=== PATIENT | male | born 1975 | race African-American/Black ===

== ENCOUNTER 2021-08-25 01:11 | Emergency (ER) | payer OTHER ==
[~2021-08-25] VITALS: Ht 185.4 cm; Wt 79.4 kg
--- NOTE | 2021-08-25 01:25 | NUR ---
BIBRA 89 FOR C/O SI. REQUESTING VOLUNTARY PSYCH ADMISSION. PATIENT ALERT AND ORIENTED X3. AMBULATORY WITH NON LABORED BREATHING IN ROOM 18 BELONGINGS COLLECTED AND PLACED IN LOCKER. PATIENT PLACED IN GOWN.
--- NOTE | 2021-08-25 01:48 | NUR ---
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
[2021-08-25 02:02] LABS: BASOPHILS % (AUTO) 0.6 % (0.0-2.0); EOSINOPHILS % (AUTO) 2.5 % (0.0-6.0); HEMATOCRIT 39 % (39-51); HEMOGLOBIN 13.1 g/dL (13.5-17.5); LYMPHOCYTES # (AUTO) 1.4 K/uL (0.8-4.8); LYMPHOCYTES % (AUTO) 32.7 % (20.0-44.0); MEAN CORPUSCULAR HGB CONC 34 g/dl (31.0-36.0); MEAN CORPUSCULAR VOLUME 93 fL (80-96); MONOCYTES # (AUTO) 0.5 K/uL (0.1-1.30); MONOCYTES % (AUTO) 10.6 % (2.0-12.0); NEUTROPHILS # (AUTO) 2.4 K/uL (1.8-8.9); NEUTROPHILS % (AUTO) 53.6 % (43.0-81.0); PLATELET COUNT (AUTO) 262 K/uL (150-450); RED BLOOD CELL COUNT(AUTO) 4.19 MIL/uL (4.5-6.0); WHITE BLOOD COUNT (AUTO) 4.4 K/uL (4.3-11.0)
[2021-08-25 02:14] LABS: CALCIUM, SERUM 8.8 mg/dL (8.5-10.1); CARBON DIOXIDE 29 mmol/L (21-32); CHLORIDE 104 mmol/L (98-107); CREATININE 1.2 mg/dL (0.6-1.3); GLUCOSE 73 mg/dL (74-106); POTASSIUM 3.6 mmol/L (3.5-5.1); SODIUM SERUM 139 mmol/L (136-145); UREA NITROGEN, BLOOD 10 mg/dL (7-18)
[2021-08-25 02:27] LABS: ALANINE AMINOTRANSFERASE 21 U/L (12-78); ALCOHOL, BLOOD < 3 mg/dL (0-0); ALKALINE PHOSPHATASE 89 U/L (46-116); ASPARTATE AMINOTRANSFERASE 11 U/L (15-37); BILIRUBIN,DIRECT 0.3 mg/dL (0.0-0.2); BILIRUBIN,TOTAL 1.2 mg/dL (0.2-1.0); TOTAL PROTEIN, SERUM 7.7 g/dL (6.4-8.2)
[2021-08-25 02:28] LABS: ACETAMINOPHEN 0 ug/ml (10-30)
--- NOTE | 2021-08-25 06:55 | NUR ---
PATIENT RESTING COMFORTABLY NO COMPLAINTS AT THIS TIME.
--- NOTE | 2021-08-25 09:08 | NUR ---
Plan: DAMION faxed clinicals to [facility] [[facility] [place] [address] FAX:[phone]] for inpatient psychiatric treatment.
[2021-08-25 09:11] LABS: BILIRUBIN,URINE SMALL (NEGATIVE); COLOR,URINE YELLOW (YELLOW); LEUKOCYTE ESTERASE ,URINE NEGATIVE (NEGATIVE); NITRITE, URINE NEGATIVE (NEGATIVE); PROTEIN,URINE TRACE mg/dl (NEGATIVE); UGLUCOSE NEGATIVE (NEGATIVE)
[2021-08-25 09:42] LABS: BACTERIA,URINE None seen /HPF (None Seen)
[2021-08-25 09:43] LABS: MUCUS,URINE Few /LPF (None Seen); SQUAMOUS EPITHELIAL CELL,UR Few /HPF (None Seen)
--- NOTE | 2021-08-25 11:26 | NUR ---
DAMION called [facility] Intake and requested update. Intake asked SW to refax clinicals to [phone]. DAMION faxed clinicals to [phone]
--- NOTE | 2021-08-25 12:39 | NUR ---
SO ALLI HAUSER CALLED AND GAVE ACCEPTANCE INFO FOR THE PT UNDER THE CARE OF DR. PAZ NUMBER FOR REPORT [phone] EXT [phone] ETA FOR TRANSPORT 1500
--- NOTE | 2021-08-25 13:30 | NUR ---
REPORT GIVEN TO VIDAL FOR [facility]VAR[facility]O
[2021-08-25 14:30] VITALS: BP 132/72
--- NOTE | 2021-08-25 15:15 | NUR ---
PICKED UP BY TRANSPORT IN STABLE CONDITION
== END 2021-08-25 15:17 ==
LOC: ER 01:13
DX: R45.851 Suicidal ideations (principal); R03.0 Elevated blood-pressure reading, without diagnosis of hypertension; Z20.822 Contact with and (suspected) exposure to COVID-19
CPT/HCPCS: 36415; 80048; 80076; 80143; 80307; 80320; 81001; 85025; 87426; 99285; C9803; G0480